=== PATIENT | female | born 2000 | race Native Hawaiian/Other Pacific Islander ===

== ENCOUNTER 2021-02-26 10:58 | Emergency (ER) | payer OTHER, SELFPAY ==
--- NOTE | ~2021-02-26 | XR_ITS ---
EXAMINATION: XR CHEST CLINICAL INFORMATION: Chest wall pain. COMPARISON: None TECHNIQUE: 2 views of the chest were obtained. FINDINGS: The lungs are clear. There is no pneumothorax or pleural reaction. No airspace consolidation or groundglass opacity or effusion. The heart is normal in size. The hilar and mediastinal contours are normal. There is mild dextrocurvature midthoracic spine. XR/XR chest 2V IMPRESSION: Unremarkable examination.
[2021-02-26 12:13] VITALS: BP 127/86; PULSE 74; RESP 19; TEMP 36.6; O2SAT 98; BMI 21.4
--- NOTE | 2021-02-26 12:19 | ECG_ITS ---
Test Reason : chest pain Blood Pressure : / mmHG Vent. Rate : 071 BPM Atrial Rate : 071 BPM P-R Int : 134 ms QRS Dur : 078 ms QT Int : 402 ms P-R-T Axes : 060 065 019 degrees QTc Int : 436 ms Normal sinus rhythm Low voltage QRS Borderline ECG No previous ECGs available Referred By: Laura Santiago Electronically Signed By:Gage Cordon
--- NOTE | 2021-02-26 12:20 | ED_ITS ---
HPI - Chest Pain General Chief Complaint: General Medical Stated Complaint: Chest pain Time Seen by Provider: 02/26/21 12:19 Source: patient Mode of arrival: EMS Limitations: no limitations History of Present Illness MD complaint: chest pain Onset (ago): day(s) (1) Timing of current episode: constant Prior episodes: No Onset: during rest Pain location: substernal Pain radiation: none Severity: moderate Quality: aching Relieving factors: nothing Exacerbating factors: palpation and movement Treatment prior to arrival: none Related Data Previous Rx's Medication Instructions Recorded clotrimazole 2 % vaginal cream 1 appful VAGINAL BEDTIME 3 Days 02/21/20 #21 g cyclobenzaprine 10 mg tablet 10 mg PO TID PRN #14 tab 02/26/21 ibuprofen 600 mg tablet 600 mg PO Q6H PRN #30 tab 02/26/21 Allergies Allergy/AdvReac Type Severity Reaction Status Date / Time No Known Allergies Allergy Unverified 10/27/19 17:01 Review of Systems Review of Systems: Constitutional : No Weight loss, No Fever, No Chills ENT/Mouth : No sore throat, No Rhinorrhea Eyes: No Eye Pain, No Swelling Cardiovascular : pos Chest Pain, no SOB, no Dyspnea on Exertion, No Orthopnea, No Edema, No Palpitations Respiratory : No Cough, No Sputum Gastrointestinal : no Nausea, No Vomiting, No Diarrhea, No abdominal Pain, No Hematochezia, No Melena Genitourinary : No Dysuria, No Urinary Frequency Musculoskeletal : No joint pain, No Myalgias, No Joint Swelling Skin : No Skin Lesions, No rash Neuro : No Weakness, No Numbness, No Dizziness, No Headache Psych : No Anxiety/Panic, No Depression Heme/Lymph: No Bruising, No Lymphadenopathy Endocrine : No Polyuria, No Polydipsia All other systems reviewed and are negative PMFSH Past Medical History Attestation statement: The following information was validated with the patient. Medical History (Updated 02/26/21 @ 12:24 by Laura Santiago DO) No known health problems Social History Social History (Updated 02/26/21 @ 12:20 by Laura Santiago DO) Patient Tobacco Use Status: Never used Tobacco Advance Directives: No Advance Directives Information Provided: No Patient : No Physical Exam Vital Signs: Vital Signs: Last Vital Signs Temp 98 F 02/26/21 12:13 Pulse 74 02/26/21 12:13 Resp 19 02/26/21 12:13 BP 127/86 02/26/21 12:13 Pulse Ox 98 02/26/21 12:13 BMI result Body Mass Index 21.4 Appearance: Alert. Oriented X3. No acute distress. Eyes: Pupils equal, round and reactive to light. ENT: Pharynx normal. Neck: Normal inspection. Neck supple. CVS: Normal heart rate and rhythm. Pulses normal. Chest: ttp along sternal border reproduces pain Respiratory: No respiratory distress. Breath sounds normal. Abdomen: Soft and nontender. Skin: Skin warm and dry. Normal skin color. Normal skin turgor. Extremities: No lower extremity edema. No calf ttp Neuro: Oriented X 3. No motor deficit. No sensory deficit. MDM - Chest Pain MDM Narrative Medical decision making narrative: 20 yo female with no sig PMH no OCPs here with c/o chest pain that is reproduceble in nature and no associated symptoms, stable VS, PERC negative, no ACS risk factors I do not suspect ACS or PE - at this time mostly MSK will obtain CXR< EKG and COVID swab. Lab Data Labs: Lab Results 02/26/21 Range/Units 12:34 COVID-19 ([facility]) Negative (Negative) COVID-19 Clin Com See Note ECG Data ECG #1: Attestation: I personally reviewed and interpreted this ECG as follows: ECG interpretation date: 02/26/21 ECG interpretation time: 12:50 Interpretation: Rate: 71 Rhythm: NSR [place]: normal Normal P waves. Normal NIDIA. Normal QRS complex. ST T wave : no YESI, nonospecific qTC: normal prior studies: no acute ischemia The study has been interpreted contemporaneously by me. . Discharge Plan Discharge Clinical Impression: Acute costochondritis Patient Disposition: Home, Self-Care Instructions: Costochondritis (ED) Additional Instructions: return to ED for any worsening symptoms or concerns COVID negative Prescriptions: New cyclobenzaprine 10 mg tablet 10 mg PO TID PRN (Reason: muscle spasm) Qty: 14 RF: 0 ibuprofen 600 mg tablet 600 mg PO Q6H PRN (Reason: pain) Qty: 30 RF: 0 No Action clotrimazole 2 % cream 1 appful vaginal BEDTIME 3 Days Qty: 21 RF: 0 Stand Alone Forms: Work/School Release
[2021-02-26 13:00] LABS: COVID-19 Test Negative (Negative)
== END 2021-02-26 13:55 | disposition home or self-care (01) ==
PROVIDERS: Emergency Provider Emergency Medicine; PCP Physician Assistant
DX: M94.0 Chondrocostal junction syndrome [Tietze] (principal); Z20.822 Contact with and (suspected) exposure to COVID-19
CPT/HCPCS: 71046; 87635; 93005; 99283

== ENCOUNTER 2022-06-09 18:18 | Emergency (ER) | payer OTHER, SELFPAY ==
--- NOTE | ~2022-06-09 | XR_ITS ---
EXAMINATION: XR ANKLE, LEFT CLINICAL INFORMATION: Pain post injury COMPARISON: None available. TECHNIQUE: AP, lateral, and mortise views of the left ankle. FINDINGS: Soft tissue swelling about the ankle. Bones are normal anatomic alignment with no acute fracture or dislocation seen. No bony degenerative or destructive changes. No soft tissue gas or radiopaque foreign body. XR/XR ankle LT min 3V IMPRESSION: Soft tissue swelling but no acute bony abnormality.
--- NOTE | 2022-06-09 20:00 | ED.LOWEXIN ---
HPI - Extremity Injury (Lower) General Stated Complaint: left ankle injury Time Seen by Provider: 06/09/22 20:00 Source: patient Mode of arrival: ambulatory Limitations: no limitations History of Present Illness HPI Narrative: 21 yo female presents to the ER for evaluation of left ankle injury sustained today. She states she was roughhousing with her kids today when she accidentally rolled her ankle. She has been having swelling and pain to the outside of her ankle since. She is able to walk on it with a limp. No other injuries. MD complaint: ankle injury Onset (ago): hour(s) Injury: Left: ankle Type of Injury: inversion Place: home Severity: moderate Severity scale (1-10): 7 Relieving factors: immobilization and rest Exacerbating factors: weight bearing, movement and palpation Associated symptoms: swelling and able to partially bear weight Other symptoms: none Related Data Previous Rx's Medication Instructions Recorded cyclobenzaprine 10 mg tablet 10 mg PO TID PRN muscle spasm #14 02/26/21 tabs ibuprofen 600 mg tablet 600 mg PO Q6H PRN pain #30 tabs 02/26/21 carbamide peroxide 6.5 % ear drops 10 drp otic (ears) DAILY 4 days 03/06/21 (Debrox) #15 mL ofloxacin 0.3 % ear drops 10 drp otic (ears) DAILY 7 days 03/12/21 #10 mL Allergies Allergy/AdvReac Type Severity Reaction Status Date / Time No Known Allergies Allergy Verified 05/22/21 10:57 Review of Systems Review of Systems: Yes all other systems are reviewed and are negative [facility] Past Medical History Medical History (Updated 06/09/22 @ 20:01 by JOMAR Rascon) No known health problems Social History Social History Alcohol intake: current Alcohol intake frequency: holidays/special occasions only Patient Tobacco Use Status: Never used Tobacco Physical Exam Vital Signs: Appearance: Alert. Oriented X3. No acute distress. HEENT: normal inspection CVS: Normal heart rate and rhythm. Pulses normal. Respiratory: No respiratory distress. Skin: Skin warm and dry. Normal skin color. Normal skin turgor. No rashes. Extremities: left ankle with mild-moderate swelling of the lateral malleolus, tender. normal ROM, pain with plantarflexion. 2+ DP/PD pulse. no medial tenderness or swelling Neuro: Oriented X 3. No motor deficit. No sensory deficit. antalgic gait Medical Decision Making Medical Decision Making MDM Narrative: 21 yo female presenting with left ankle pain and swelling after an inversion injury at home today. She is ambulatory. XR showing no fracture. Will treat for sprain. INOCENTE wrap applied. discussed RICE. Differential Diagnosis Differential Diagnoses: The differential diagnosis associated with the presentation includes ankle sprain, ankle strain, contusion, ankle fracture Independent Interpretation I performed an independent interpretation of an: Plain X-Ray Interpretation: normal ankle, no fx Radiology Impression Discussion of test interpretation with radiology: I have reviewed the radiologist's reading. Radiologist Impression: EXAMINATION: XR ANKLE, LEFT CLINICAL INFORMATION: Pain post injury? COMPARISON: None available.? TECHNIQUE: AP, lateral, and mortise views of the left ankle. FINDINGS: Soft tissue swelling about the ankle. Bones are normal anatomic alignment with no acute fracture or dislocation seen. No bony degenerative or destructive changes. No soft tissue gas or radiopaque foreign body.? XR/XR ankle LT min 3V IMPRESSION: Soft tissue swelling but no acute bony abnormality. Prescription Management I considered prescription management with: Pain Medication Procedures Orthopedic Splinting/Casting Injury #1: Side: left Lower Extremity Injury Location: ankle Lower Extremity Immobilizer: Inocente wrap Critical Care Time Critical Care Time Critical Care Time: No Discharge Plan Discharge Clinical Impression: Ankle sprain Patient Disposition: Home, Self-Care Instructions: Ankle Sprain (DC) Additional Instructions: Your x-ray today was normal. Rest your ankle and elevate your foot when possible. Recommend INOCENTE wrap for support and compression. Use ice several times per day for the next 48 hours. You may bear weight as tolerated. If pain is too severe, use crutches until better. Take Motrin and/or Tylenol as needed for pain. Follow up with your doctor as needed. Prescriptions: No Action cyclobenzaprine 10 mg tablet 10 mg PO TID PRN (Reason: muscle spasm) Qty: 14 0RF ibuprofen 600 mg tablet 600 mg PO Q6H PRN (Reason: pain) Qty: 30 0RF Debrox 6.5 % drops 10 drp otic (ears) DAILY 4 Days Qty: 15 0RF ofloxacin 0.3 % drops 10 drp otic (ears) DAILY 7 Days Qty: 10 0RF
[2022-06-09 20:03] VITALS: BP 117/97; PULSE 79; RESP 19; TEMP 36.6; O2SAT 97; BMI 23.0
== END 2022-06-09 20:14 | disposition home or self-care (01) ==
LOC: HO.ED 20:07
PROVIDERS: Emergency Provider Emergency Medicine; PCP Physician Assistant
DX: S93.402A Sprain of unspecified ligament of left ankle, initial encounter (principal); X58.XXXA Exposure to other specified factors, initial encounter; Y93.9 Activity, unspecified; Y92.9 Unspecified place or not applicable; Y99.9 Unspecified external cause status; Z79.899 Other long term (current) drug therapy
CPT/HCPCS: 29515; 73610; 99281; 99283

== ENCOUNTER 2022-07-15 18:41 | Emergency (ER) | payer OTHER, SELFPAY ==
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
[2022-07-15 19:42] VITALS: BP 122/84; PULSE 88; RESP 18; TEMP 36.7; O2SAT 99; BMI 22.3
== END 2022-07-15 19:56 | disposition home or self-care (01) ==
LOC: HO.ED 19:52
PROVIDERS: Emergency Provider Emergency Medicine; PCP Physician Assistant
DX: S16.1XXA Strain of muscle, fascia and tendon at neck level, initial encounter (principal); V43.52XA Car driver injured in collision with other type car in traffic accident, initial encounter; Y93.89 Activity, other specified; Y92.414 Local residential or business street as the place of occurrence of the external cause; Y99.9 Unspecified external cause status
CPT/HCPCS: 99282; 99283